=== PATIENT | male | born 1965 | race American Indian/Alaskan Native ===

== ENCOUNTER 2017-04-01 13:09 | Emergency (ER) | payer MEDICARE, MEDICAID ==
[2017-04-01 13:09] VITALS: BMI 22.7
[2017-04-01 13:16] VITALS: BP 135/77; PULSE 71; RESP 18; TEMP 98; O2SAT 100
--- NOTE | 2017-04-01 13:30 | C.PDOC ---
History Of Present Illness 52-year-old male, presents to the emergency department requesting Heroin detox. Patient denies any physical complaints at this time. Time Seen by Provider: 04/01/17 13:23 Chief Complaint (Nursing): Substance Abuse History Per: Patient History/Exam Limitations: no limitations Past Medical History Reviewed: Historical Data, Nursing Documentation, Vital Signs Vital Signs: Last Vital Signs Temp 98 F 04/01/17 13:14 Pulse 71 04/01/17 13:14 Resp 18 04/01/17 13:14 BP 135/77 04/01/17 13:14 Pulse Ox 100 04/01/17 13:38 - Medical History PMH: Denies: Diabetes, Hepatitis, HIV, HTN, Chronic Kidney Disease, Seizures, Sexually Transmitted Disease - [facility] Procedures DRUG REHABILITATION AND DETOXIFICATION (05/14/15) Family History: States: No Known Family Hx - Social History Hx Tobacco Use: No Hx Alcohol Use: No Hx Substance Use: Yes - Immunization History Hx Tetanus Toxoid Vaccination: No Hx Influenza Vaccination: No Hx Pneumococcal Vaccination: No Review Of Systems Except As Marked, All Systems Reviewed And Found Negative. Constitutional: Negative for: Fever Cardiovascular: Negative for: Chest Pain Respiratory: Negative for: Shortness of Breath Psych: Negative for: Suicidal ideation Physical Exam - Physical Exam Appears: Non-toxic, No Acute Distress Head: Atraumatic Eye(s): bilateral: Normal Inspection Neck: Normal ROM Respiratory: No Accessory Muscle Use Neurological/Psych: Oriented x3 ED Course And Treatment O2 Sat by Pulse Oximetry: 100 Progress Note: Case was discussed w/ torpedo worker, who states that there are no detox beds available. Patient made aware; Pt will be discharged w/ a list of detox programs, and information for the detox co-ordinator/instructions for pre- screening process. Patient is agreeable with plan. All questions answered. Treated with motrin 600 mg PO Reassessment Condition: Unchanged Disposition Counseled Patient/Family Regarding: Need For Followup - Disposition Referrals: [facility] [Outside] [facility] [Outside] Alcohol[facility] Anonymous [Outside] Disposition: HOME/ ROUTINE Disposition Time: 13:40 Condition: STABLE Additional Instructions: Return to ED if any increase symptoms Instructions: Narcotic Abuse (ED) Forms: [employer] (Hungarian) - POA Present On Arrival: None - Clinical Impression Clinical Impression: Drug abuse - Scribe Statement The provider has reviewed the documentation as recorded by the Scribe (Justin Herrera) All medical record entries made by the Scribe were at my direction and personally dictated by me. I have reviewed the chart and agree that the record accurately reflects my personal performance of the history, physical exam, medical decision making, and the department course for this patient. I have also personally directed, reviewed, and agree with the discharge instructions and disposition.
== END 2017-04-01 14:12 | disposition home or self-care (01) ==
LOC: C.ER 13:09
DX: F11.10 Opioid abuse, uncomplicated (principal)